=== PATIENT | female | born 1980 | race Caucasian/White ===

== ENCOUNTER 2020-08-23 13:59 | Emergency (ER) | payer MEDICAID ==
[~2020-08-23] VITALS: Ht 162.6 cm; Wt 74.5 kg
[2020-08-23 14:05] VITALS: Ht 162.6 cm; Wt 74.5 kg
[2020-08-23 14:45] LABS: BASOPHILS 0.3 % (0-2); EOSINOPHILS 0.8 % (0-7); HEMATOCRIT 34.1 % (36.0-48.0); HEMOGLOBIN 11.5 g/dL (12-16); LYMPHOCYTES 5.8 % (15-50); MCH 28.3 pg (26.0-34.0); MCHC 33.6 g/dL (31.0-37.0); MCV 84.3 fL (80.0-100.0); MEAN PLATELET VOLUME 6.7 fL (7.4-10.4); NEUTROPHILS 86.1 % (40-80); PLATELET COUNT 324 10x3/uL (130-400); RBC 4.04 10x6/uL (4.00-5.40); RDW 13.3 % (11.5-14.5); WBC 14.5 10x3/uL (4.8-10.8)
[2020-08-23 14:56] LABS: CALC OSMOLALITY 270 mosm/kg (275-300); CALCIUM 8.5 mg/dL (8.5-10.1); CARBON DIOXIDE 21.9 mmol/L (21.0-32.0); CHLORIDE - SERUM 102 mmol/L (98-107); CREATININE - SERUM 0.8 mg/dL (0.6-1.3); GLUCOSE 107 mg/dL (74-106); POTASSIUM - SERUM 3.4 mmol/L (3.5-5.1); SODIUM 135 mmol/L (136-145); UREA NITROGEN 15 mg/dL (7-18); eGFR NON AFRICAN AMERICAN 84 mL/min (90-120)
[2020-08-23 15:06] LABS: ALBUMIN 3.4 g/dL (3.4-5.0); ALKALINE PHOSPHATASE 55 U/L (30-120); ALT (SGPT) 19 U/L (10-68); AMYLASE - SERUM 37 U/L (25-115); LIPASE 108 U/L (73-393); PROTEIN - SERUM 6.6 g/dL (6.4-8.2)
[2020-08-23 15:14] LABS: TROPONIN-I < 0.017 ng/mL (0.000-0.060)
[2020-08-23 15:26] LABS: HCG SERUM NEGATIVE (NEGATIVE)
[2020-08-23 15:32] LABS: BILIRUBIN NEGATIVE (NEGATIVE); KETONE NEGATIVE (NEGATIVE); NITRITE POSITIVE (NEGATIVE); UROBILINOGEN NORMAL mg/dL (< 2)
[2020-08-23 15:34] LABS: BACTERIA MANY HPF (NONE SEEN); SQUAMOUS EPITHELIAL 0-5 HPF (0-4); WHITE CELLS - URINE 0-5 HPF (0-4)
[2020-08-23 15:39] LABS: UDS - AMPHET POSITIVE QUAL (NEGATIVE); UDS - BARB NEGATIVE QUAL (NEGATIVE); UDS - BENZO NEGATIVE QUAL (NEGATIVE); UDS - COCAINE NEGATIVE QUAL (NEGATIVE); UDS - OPIATE NEGATIVE QUAL (NEGATIVE); UDS - PCP NEGATIVE QUAL (NEGATIVE); UDS - THC NEGATIVE QUAL (NEGATIVE)
[2020-08-23] MEDS ORDERED: DOXYCYCLINE HY100 M2 PO (17:50)
[2020-08-23 18:16] VITALS: BP 94/50
== END 2020-08-23 18:16 | disposition home or self-care (01) ==
LOC: D.ER 13:59
PROVIDERS: Emergency Medicine
DX: N39.0 Urinary tract infection, site not specified (principal); F15.10 Other stimulant abuse, uncomplicated; R10.31 Right lower quadrant pain; N83.201 Unspecified ovarian cyst, right side; R91.8 Other nonspecific abnormal finding of lung field; R11.0 Nausea